=== PATIENT | female | born 1955 | race Caucasian/White ===

== ENCOUNTER 2016-10-24 14:20 | Emergency (ER) | payer BC ==
[2016-10-24 14:34] VITALS: TEMP 98.2; BMI 34.9
[2016-10-24 14:52] LABS: AUTOMATED BASOPHIL 0.8 % (0-2); AUTOMATED EOSINOPHIL 2.6 % (0-5); AUTOMATED LYMPH 19.5 % (17-44); AUTOMATED MONOCYTE 4.6 % (3-10); AUTOMATED NEUTROPHIL 72.5 % (45-76); MPV 8.2 fL (7.4-10.4)
--- NOTE | 2016-10-24 14:57 | EDPRACDOC ---
[id number] Provider: 10/24/16 14:44 Information Source: Patient Mode of Arrival: Car Home Medications: Home Medications Citalopram (anti-depressant) [Celexa] 20 mg PO DAILY 04/26/14 Levothyroxine Sodium [Synthroid] 50 mcg PO DAILY 04/26/14 Metoprolol Succinate [Toprol Xl] 50 mg PO DAILY 04/26/14 Amlodipine [Norvasc] 2.5 mg PO DAILY 10/24/16 Aspirin [Aspirin, Chewable] 81 mg PO DAILYWM 10/24/16 Atorvastatin Calcium [Lipitor] 80 mg PO QHS 10/24/16 Meloxicam 15 mg PO DAILY 10/24/16 Nitroglycerin Sublingual Tab [NTG (NitroStat Sublingual Tab)] 0.4 mg SL [id number] PRN 10/24/16 Allergies/Adverse Reactions: Allergies Allergy/AdvReac Type Severity Reaction Status Date / Time No Known Allergies Allergy Verified 04/11/15 11:26 - History of Present Illness Onset: TODAY 1 AM HPI: PT WAKING UP IN THE MIDDLE OF NIGHT FEELING LIKE HEART RACING; NOT REGULAR ON CERTIFIED [employer]. 1 AM TODAY WOKE UP WITH HEART BEATING FAST. NO PAIN. TINGLING LIKE A WAVE THAT WOULD COME AND GO. THOUGHT SHE MIGHT HAVE MISSED HER TOPROL DOSE YESTERDAY MORNING. PT GOT REALLY ANXIOUS. WENT TO URGENT CARE. LAST WI WAS NSTEMI. PT HAS BEEN UNDER A LOT OF STRESS LATELY. TOOK A NITRO LAST NIGHT ABOUT 3, NOT SURE IF ANY RELIEF. 1.5 YEARS AGO HAD NSTEMI, MINOR ARTERY POSTERIOR BLOCKED. NO STENT. PLAVIX X 1 YEAR (MEDICALLY TREATED). ED Past Medical History - History Reviewed Yes Nurses notes reviewed and agree except as marked - Patient Medical History Cardiac History: Reports: Hypertension, Heart Attack, Hypercholesterolemia GI/ History: Reports: Urinary Tract Infection Musculoskeletal History: Reports: Arthritis (KNEES, HIPS), Osteoarthritis Psychological History: Reports: Depression, Anxiety. Denies: Substance Use Disorder Systemic History: Reports: Hypothyroidism. Denies: Diabetes Surgical History: Reports: Other ( tubal ligation, R knee arthroscopy). Denies : Hysterectomy - Family Medical History Reports: Diabetes (mother, MGM), Stroke (GRANDMOTHER), Cardiac Disorders ( mother - atrial fib, MGF- CHF) - Social Medical History Smoking Status: Never smoker Social History: Denies: Benzodiazipine Use, Methadone Use, Substance Use Disorder EDM Review of Systems - Review of Systems ROS Negative Except as Marked: Yes All systems reviewed and were negative except as marked Respiratory: No Symptoms Reported Gastrointestinal: No Symptoms Reported Genitourinary: No Symptoms Reported Integumentary: No Symptoms Reported Allergic/Immunologic: No Symptoms Reported - Physical Exam Constitutional: Alert (Awake), No apparent distress Oriented to: Time, Person, Place Last recorded Vital Signs: Last Vital Signs Temp 98.2 F 10/24/16 14:22 Pulse 78 10/24/16 14:22 Resp 18 10/24/16 14:22 BP 173/77 10/24/16 14:22 Pulse Ox 95 10/24/16 14:22 Oxygen Pulse Oxygen Saturation 95 O2 Device Room Air Oxygen Flow Rate Fraction of Inspired Oxygen ( FIO2) - HEENT Head: Normal ( normocephalic) Eye Exam: Normal (PERRL, EOMI, Sclera white) Oropharynx: Normal (Pharynx:Moist without exudate,Gums-no swelling) Nose: No Symptoms Reported (septum midline) Neck: Normal (FROM, trachea at midline) - Respiratory/Cardiovascular Respiratory: Normal - CTA (BBS clear to auscultation without adventitious sounds ) Cardiovascular: Normal (RRR without murmur, gallop or rub) - GI Auscultation: Normal (NABS) Palpation: Normal (Soft,No rebound or guarding, non distended) Tenderness: Non tender Polanco's Sign: Negative - Musculoskeletal Back: Normal (Non-Tender) Extremities: Normal (Normal tone, Pulses 2+ No cyanosis or edema, FROM) - Integumentary Skin: Normal, Warm, Dry Lymphatics: Normal (no adenopathy) - Neurologic Memory Impaired: Normal Motor Function: Normal (Normal tone, Pulses 2+ No cyanosis or edema, FROM) Cranial Nerve: Normal (CN II-X11 intact sensation, strength 5/5) Cerebellar: Normal Mood Description: Normal Perception: Normal - Action ASA given in the ED: No - Results 10/24/16 14:29 10/24/16 14:29 Decision Time to Discharge: 15:49 - Departure Yes I personally saw and evaluated the patient. Disposition: Home Condition: Stable Final Diagnosis: Chest discomfort Instructions: Chest Pain (ED) Education/Counseling Given To: Patient Education/Counseling Given Regarding: Diagnosis Referrals: None,No Provider [NonStaff] - 10/27/16 Additional Instructions: talk with your doctor about a possible sleep study. if symptoms change or worsen return to ed.
[2016-10-24 15:00] LABS: BLOOD UREA NITROGEN 12 MG/DL (7-17); CALCIUM 9.3 MG/DL (8.4-10.2); CALCULATED OSMOLALITY 273 MOs/Kg (270-290); CHLORIDE 106 mEq/L (98-107); GLUCOSE 106 MG/DL (70-99); SODIUM LEVEL 142 mEq/L (137-146)
[2016-10-24 15:03] LABS: PARTIAL THROMB. TIME 24.5 SEC (22-35)
--- NOTE | 2016-10-24 15:42 | DIRPT ---
CLINICAL DATA: Chest pain. EXAM: PORTABLE CHEST 1 VIEW COMPARISON: April 11, 2015. FINDINGS: The heart size and mediastinal contours are within normal limits. Both lungs are clear. No pneumothorax or pleural effusion is noted. The visualized skeletal structures are unremarkable. IMPRESSION: No acute cardiopulmonary abnormality seen. Electronically Signed By: Kenneth Qiu Jr, M.D. On: 10/24/2016 15:39
[2016-10-24 16:20] VITALS: BP 138/77; PULSE 70
== END 2016-10-24 16:17 | disposition home or self-care (01) ==
LOC: ED 14:20
DX: R07.89 Other chest pain (principal)
CPT/HCPCS: 36415; 71010; 80053; 83880; 84484; 85025; 85610; 85730; 99284